=== PATIENT | female | born 1955 | race Caucasian/White ===

== ENCOUNTER → 2023-01-06 | Outpatient (CLI) | payer BC | END | disposition home or self-care (01) | LOC: LAB 08:29 → LAB SHORT 08:29 | DX: N39.0 Urinary tract infection, site not specified (principal) | CPT/HCPCS: 87077; 87086; 87186 ==

== ENCOUNTER 2023-06-10 09:34 | Day surgery (SDC) | payer BC ==
[~2023-06-10] VITALS: Ht 177.8 cm; Wt 97.5 kg
[2023-06-10] VITALS (17 sets, daily range): BP systolic 132–165; BP diastolic 73–141
[~2023-06-10 09:34] MED LIST: HYDCHL25 PO; MAGNESIUM SULF100 MG PO; NIAC500 PO
[2023-06-10] MEDS ORDERED: GUAI600T33 PO (10:55)
--- NOTE | 2023-06-10 11:08 | NUR ---
Ambulatory in Day Surgery. History, Chart, Medications and Allergies reviewed before start of procedure. Lungs clear T/O to Auscultation. Patient confirms NPO status and agrees with scheduled surgery. Pre-Op teaching done. Pt verbalizes understanding. Patient States Post-Procedure ride home has been arranged.
--- NOTE | 2023-06-10 11:56 | NUR ---
06/10/23 [address] HISTORY, CHART, MEDICATIONS AND ALLERGIES REVIEWED BEFORE START OF PROCEDURE. PATIENT CONFIRMS NPO STATUS AND AGREES WITH SCHEDULED PROCEDURE. 3-LEAD EKG REVIEWED WITH PHYSICIAN PRIOR TO START OF PROCEDURE. MONITOR INTACT WITH CONTINUOUS PULSE OXIMETRY,CAPNOGRAPHY, 3-LEAD EKG, INTERMITTENT BP. SUPPLEMENTAL O2 TO BE TITRATED THROUGHOUT PROCEDURE TO MAINTAIN O2 SATURATION ABOVE 90%. PATIENT DETERMINED TO BE ASA APPROPRIATE FOR PROPOFOL SEDATION PRIOR TO START OF PROCEDURE BY DR. BEASLEY. MALLAMPATI CLASS 1 AIRWAY: COMPLETE VISULATIZATION OF THE SOFT PALATE.
--- NOTE | 2023-06-10 12:48 | NUR ---
Discharge instructions reviewed with patient. Patient verbalizes understanding. Copy given to patient to take home. Patient States Post-Procedure ride home has been arranged. Discharged via wheelchair to private car for ride home.
== END 2023-06-10 12:50 | disposition home or self-care (01) ==
LOC: ORSCMMR 09:34 → ORD 10:30 → ORSCMMR 12:50
PROVIDERS: Internal Medicine Gastroenterology
PROC: 0DBB8ZX Excision of Ileum, Via Natural or Artificial Opening Endoscopic, Diagnostic (ICD-10-PCS; principal; 2023-06-10 10:30)
PROC: 0DBK8ZX Excision of Ascending Colon, Via Natural or Artificial Opening Endoscopic, Diagnostic (ICD-10-PCS; principal; 2023-06-10 10:30)
PROC: 0DBN8ZX Excision of Sigmoid Colon, Via Natural or Artificial Opening Endoscopic, Diagnostic (ICD-10-PCS; principal; 2023-06-10 10:30)
DX: K62.5 Hemorrhage of anus and rectum (principal); K52.832 Lymphocytic colitis; K64.8 Other hemorrhoids; I10 Essential (primary) hypertension; K58.9 Irritable bowel syndrome, unspecified; Z79.899 Other long term (current) drug therapy
CPT/HCPCS: 88305; J2704; J7120

== ENCOUNTER → 2023-10-07 | Outpatient (CLI) | payer BC ==
[~2023-10-07] MED LIST changes: +GUAI600T33 PO
== END | disposition home or self-care (01) ==
LOC: LAB 11:28 → LAB SHORT 11:28
DX: N39.0 Urinary tract infection, site not specified (principal)
CPT/HCPCS: 87077; 87086; 87186

== ENCOUNTER → 2024-08-03 | Outpatient (CLI) | payer BC | LOC: LAB 10:07 → LAB SHORT 10:07 | DX: N39.0 Urinary tract infection, site not specified (principal) | CPT/HCPCS: 87077; 87086; 87186 ==

== ENCOUNTER 2024-12-27 10:28 | Emergency (ER) | payer BC, MEDICARE ==
[~2024-12-27] VITALS: Ht 177.8 cm; Wt 97.5 kg
[~2024-12-27 10:28] MED LIST changes: +AMLO5 PO; +DOCU100 PO; +ENOX40I SC; +HYDR1TAB94 PO; +LOSA50 PO; +MELO7.5 PO; +MIRALAX17 GM PO; +OXAYDO5 M1 PO; +POTCHL20ER PO; +Robaxin750 MG PO; +TRAM50 PO
[2024-12-27] MEDS ORDERED: TRAM50 PO (10:41)
[2024-12-27] MEDS ORDERED: Acetaminophen325 M1 PO (10:42)
[2024-12-27 11:30] VITALS: BP 163/81
== END 2024-12-27 11:52 | disposition home or self-care (01) ==
LOC: ER 10:28
DX: S01.01XA Laceration without foreign body of scalp, initial encounter (principal); Z79.01 Long term (current) use of anticoagulants; Z96.652 Presence of left artificial knee joint; W18.39XA Other fall on same level, initial encounter
CPT/HCPCS: 70450; 99284-25

== ENCOUNTER → 2025-06-21 | Outpatient (CLI) | payer BC ==
[~2025-06-21] MED LIST changes: +Acetaminophen325 M1 PO
[2025-06-21 19:09] LABS: Source, Urine Clean Catch
[2025-06-21 19:22] LABS: Bilirubin, Urine Neg (Neg); Color, Urine Yellow (P-Yellow); Glucose Qualitative, Urine Neg (Neg); Ketones, Urine Neg (Neg); Leukocyte Esterase, Urine 3+ (Neg); Protein, Urine 2+ (Neg); Specific Gravity, Urine 1.010 (1.003-1.022); Urobilinogen, Urine NORM (Normal)
[2025-06-21 19:38] LABS: Red Blood Cells, Urine 0-2 /hpf (0-2); White Blood Cells, Urine TNTC /hpf (0-5)
== END | disposition home or self-care (01) ==
LOC: LAB 19:08 → LAB SHORT 19:08
PROVIDERS: Student in an Organized Health Care Education/Training Program
DX: R30.0 Dysuria (principal)
CPT/HCPCS: 81001; 87077; 87086; 87186